=== PATIENT | male | born 1970 | race Caucasian/White ===

== ENCOUNTER 2018-04-16 20:00 | Emergency (ER) | payer OTHER ==
[~2018-04-16] VITALS: Ht 172.7 cm; Wt 77.1 kg
[~2018-04-16 20:00] MED LIST: COUMADIN1 MG PO; KLONOPIN1 MG/TAB PO
== END 2018-04-16 21:35 | disposition home or self-care (01) ==
LOC: ER 20:00
DX: S76.812A Strain of other specified muscles, fascia and tendons at thigh level, left thigh, initial encounter (principal); X50.9XXA Other and unspecified overexertion or strenuous movements or postures, initial encounter; Y93.73 Activity, racquet and hand sports; Y92.89 Other specified places as the place of occurrence of the external cause; Y99.8 Other external cause status

== ENCOUNTER 2018-06-16 09:26 | Emergency (ER) | payer OTHER ==
[~2018-06-16] VITALS: Ht 172.7 cm; Wt 77.1 kg
[2018-06-16] MEDS ORDERED: LEVAQUIN500 MG (10:05)
[2018-06-16] MEDS ORDERED: ULTRACET PO (14:57)
[2018-06-16] MEDS ORDERED: BACTRIM DS TAB1 EACH PO (14:57)
== END 2018-06-16 16:05 | disposition home or self-care (01) ==
LOC: ER 09:26
DX: N20.0 Calculus of kidney (principal)

== ENCOUNTER 2018-06-21 18:48 | Emergency (ER) | payer OTHER ==
[~2018-06-21] VITALS: Ht 170.2 cm; Wt 77.1 kg
[~2018-06-21 18:48] MED LIST changes: +BACTRIM DS TAB1 EACH PO; +LEVAQUIN500 MG; +ULTRACET PO
== END 2018-06-22 00:52 | disposition home or self-care (01) ==
LOC: ER 18:48
DX: K80.20 Calculus of gallbladder without cholecystitis without obstruction (principal); R10.814 Left lower quadrant abdominal tenderness

== ENCOUNTER 2018-06-27 06:47 | Emergency (ER) | payer OTHER ==
[~2018-06-27] VITALS: Ht 167.6 cm; Wt 77.1 kg
== END 2018-06-27 16:20 | disposition home or self-care (01) ==
LOC: ER 06:47
DX: K80.20 Calculus of gallbladder without cholecystitis without obstruction (principal); R10.11 Right upper quadrant pain